=== PATIENT | male | born 1960 | race Caucasian/White ===

== ENCOUNTER 2022-02-07 02:27 | Outpatient (CLI) | payer OTHER, SELFPAY ==
--- NOTE | 2022-02-07 08:00 | ETT_ITS ---
APPROVED REPORT Exam: Exercise Treadmill Patient Location: Out-Patient Room/Bed: Stress Nurse: Rosanne Rueda RN Ordering Provider:CARL TOBAR, Contact Number: [phone] BMI: 33.44 Baseline Rhythm: Sinus Rhythm Indications: Arm pain w/ exertion, Minor SOB Medical History Medical History: HTN, HLD Cardiac Medications: Atorvastatin, Lisinopril, Aspirin Allergies: Codeine Cardiac Risk Factors: +family history, HTN, HLD Previous Cardiac Procedures: None Pretest Chest Pain Characteristics: None Exercise History: Indeterminate, Biking Physical Disabilities: None Lung Sounds: Lungs clear to air Heart Sounds: Regular Stress Test Details Test: Exercise stress testing was performed using a Tao protocol. Rest Stress HR Resting HR Supine: 69 bpm Max Heart Rate (APMHR): 158 bpm Resting HR Standin bpm Target HR (85% APMHR): 134 bpm Max HR Achieved: 156 bpm % of APMHR: 98 Recovery HR: 82 bpm HR response to stress: Normal HR response to stress BP Resting BP Supine: 132/78 mmHg Resting BP Standin/80 mmHg Max BP: 172/78 mmHg Recovery BP: 132/80 mmHg BP response to stress: Normal blood pressure response to stress. ECG Resting ECG: Sinus Rhythm Ectopy: None Stress ECG: Sinus Tachycardia ST Change: Upsloping ST depression Lead(s): II, III, aVF, V4, V5 Stage: [address] Deviation: 0.5-1 mm Arrhythmia: None Recovery ECG: Sinus Rhythm Recovery ST Change: No significant ST segment changes noted Recovery Arrhythmia: 1 PVC Comment: ST depressions resolved w/in 1 minute of recovery Clinical Reason for Termination: ST changes, , Target HR Achieved Stress Symptoms: Slight tingling in left arm Exercise duration: 8 min36 sec Highest Stage Reached: 3 Exercise capacity: 10.16 METs Angina Score: None Nicholson Treadmill Score: 6.5 Rate Pressure Product: [id number] Stress ECG Conclusion 1. The resting electrocardiogram was within normal limits 2. Patient exercised on the Tao protocol and completed a workload of 10.16 METS 3. Normal heart rate and blood pressure response to exercise. The patient achieved 98% of predicted heart rate for age 4. At peak exercise there was no electrocardiographic evidence of myocardial ischemia. In recovery t here were minor nondiagnostic ST-T abnormalities 5. There were no significant dysrhythmias Nichloson Treadmill Score is 6.5 which is Low risk. Stress Test Summary STAGE Time (mins) Speed (mph) Grade (%) HR BP SpO2 SYMPTOMS METS Supine 69 132/78 Standing 73 124/80 1 3 1.7 10 122 162/80 4.5 2 6 2.5 12 138 168/78 Arms feel slightly heavy 7 3 9 3.4 14 156 10 1 min recovery 130 172/78 Left arm tingling 3 min recovery 104 162/84 Arms return to normal 6 min recovery 97 132/80 9 min recovery 82
== END 2022-02-07 02:47 ==
PROVIDERS: Visit Provider Physician Assistant Medical
DX: R06.02 Shortness of breath (principal); M79.602 Pain in left arm; I10 Essential (primary) hypertension; E78.5 Hyperlipidemia, unspecified
CPT/HCPCS: 93017

== ENCOUNTER 2023-04-03 12:39 | Outpatient (CLI) | payer OTHER, SELFPAY ==
[2023-04-03 09:12] LABS: ALT 28 U/L (16-63); AST 17 U/L (15-37); Albumin 3.8 g/dL (3.4-5.0); Alkaline Phosphatase 62 U/L (46-116); Anion Gap 7.7 mmol/L (3-11); BUN 17 mg/dL (7-18); Bilirubin, Total 0.6 mg/dL (0.2-1.0); CO2 28.3 mmol/L (21.0-32.0); CREATININE 1.1 mg/dL (0.70-1.30); Calculated LDL 109 mg/dL (<100); Chloride 103 mmol/L (98-107); Cholesterol 181 mg/dL (<200); Estimated GFR 75.43 (mL/min/1.73m2); Glucose 108 mg/dL (74-106); HDL Cholesterol 44 mg/dL (40-60); Potassium 4.1 mmol/L (3.5-5.1); Sodium 139 mmol/L (136-145); Total Protein 7.7 g/dL (6.4-8.2); Triglyceride 143 mg/dL (<150)
[2023-04-03 20:39] LABS: Hepatitis C Ab w Rflx HCV PCR Negative (Negative)
[2023-04-03 20:40] LABS: HIV-1/2 Ag & Ab Screen Negative (Negative)
== END 2023-04-03 12:40 | disposition home or self-care (01) ==
LOC: LBO 12:40
PROVIDERS: PCP Nurse Practitioner Family; Visit Provider Nurse Practitioner Family
DX: E78.5 Hyperlipidemia, unspecified (principal); Z11.59 Encounter for screening for other viral diseases; Z12.5 Encounter for screening for malignant neoplasm of prostate; Z11.4 Encounter for screening for human immunodeficiency virus [HIV]
CPT/HCPCS: 36415; 80053; 80061; 84153; 86803; 87389

== ENCOUNTER 2024-07-18 22:10 | Outpatient (REF) | payer OTHER, SELFPAY ==
[2024-07-18 22:05] LABS: ALT 32 U/L (16-63); AST 17 U/L (15-37); Albumin 4.5 g/dL (3.4-5.0); Alkaline Phosphatase 72 U/L (46-116); Anion Gap 8.9 mmol/L (3-11); BUN 16 mg/dL (7-18); Bilirubin, Total 0.6 mg/dL (0.2-1.0); CO2 27.1 mmol/L (21.0-32.0); Calcium 9.1 mg/dL (8.5-10.1); Calculated LDL 127 mg/dL (<100); Chloride 104 mmol/L (98-107); Cholesterol 216 mg/dL (<200); Estimated GFR 84.05 (mL/min/1.73m2); Glucose 80 mg/dL (74-106); HDL Cholesterol 51 mg/dL (>or=40); Potassium 4.3 mmol/L (3.5-5.1); Sodium 140 mmol/L (136-145); Triglyceride 194 mg/dL (<150)
[2024-07-21 12:23] LABS: HBs Antibody, Quant <3.1 mIU/mL (See Note); Hep B Surface Ab Negative (See Note); Hepatitis B Core Antibody Negative (Negative); Hepatitis B Surface Antigen Negative (Negative)
== END 2024-07-18 22:11 | disposition home or self-care (01) ==
LOC: LBN 22:10
PROVIDERS: PCP Nurse Practitioner Family; Visit Provider Nurse Practitioner Family
DX: E78.5 Hyperlipidemia, unspecified (principal); Z12.5 Encounter for screening for malignant neoplasm of prostate; Z11.59 Encounter for screening for other viral diseases
CPT/HCPCS: 80053; 80061; 84153; 86704; 86706; 87340

== ENCOUNTER 2025-01-27 01:37 | Outpatient (CLI) | payer OTHER, SELFPAY ==
[2025-01-27 16:13] LABS: Hemoglobin A1C 5.4 % (<5.7)
[2025-01-27 16:22] LABS: Anion Gap 10.7 mmol/L (3-11); BUN 16 mg/dL (7-18); CO2 28.3 mmol/L (21.0-32.0); Calcium 9.2 mg/dL (8.5-10.1); Chloride 102 mmol/L (98-107); Estimated GFR 74.50 (mL/min/1.73m2); Glucose 123 mg/dL (74-106); Potassium 3.4 mmol/L (3.5-5.1); Sodium 141 mmol/L (136-145); TSH (W/Ref FT4) 0.98 uIU/mL (0.36-3.74)
== END 2025-01-27 01:38 | disposition home or self-care (01) ==
LOC: LOS 01:37
PROVIDERS: PCP Nurse Practitioner Family; Visit Provider Nurse Practitioner Family
DX: R63.5 Abnormal weight gain (principal); R73.9 Hyperglycemia, unspecified; I10 Essential (primary) hypertension
CPT/HCPCS: 36415; 80048; 83036; 84443

== ENCOUNTER 2025-03-18 16:06 | Outpatient (CLI) | payer OTHER, SELFPAY ==
[2025-03-18 17:12] LABS: ALT 19 U/L (10-49); AST 17 U/L (<34); Albumin 4.7 g/dL (3.2-5.0); Alkaline Phosphatase 81 U/L (46-116); Anion Gap 8.4 mmol/L (3-11); BUN 11 mg/dL (9-23); Bilirubin, Total 0.50 mg/dL (0.2-1.2); CO2 27.6 mmol/L (20.0-31.0); Calcium 8.7 mg/dL (8.3-10.6); Chloride 106 mmol/L (98-107); Glucose 85 mg/dL (74-106); Potassium 3.7 mmol/L (3.5-5.1); Sodium 142 mmol/L (136-145); Total Protein 7.3 g/dL (5.7-8.2)
[2025-03-18 20:06] LABS: Abs Immature Grans 0.03 10^3/uL (0.0-0.06); HCT 38.2 % (40.0-50.0); HGB 12.4 g/dL (13.5-17.5); Immature Grans % 0.3 %; MCH 30.0 pg (27.0-33.0); MCHC 32.5 % (32.0-36.0); MCV 93 fL (80-95); MPV 11.0 fL (8.0-11.0); Platelet Count 280 10^3/uL (130-400); RBC 4.13 10^6/uL (4.36-5.78); RDW 13.2 % (11.8-14.1); RDW-SD 44.8 fL; WBC 9.27 10^3/uL (4.4-10.8)
[2025-03-18 21:07] LABS: EPI 027-NAP1-B1 PRESUMPTIVE NEGATIVE
[2025-03-20 08:31] LABS: Lab Add On Test DONE
[2025-03-20 08:51] LABS: Vitamin B12 241 pg/mL (211-911)
[2025-03-20 09:40] LABS: Lab Add On Test DONE
[2025-03-20 17:34] LABS: Folate 3.8 ng/mL (See Note)
[2025-03-20 20:21] LABS: Campylobacter PCR Negative (Negative); Shiga Toxin PCR Negative (Negative); Shigella/Enteroinvasive Ecoli Negative (Negative)
== END 2025-03-18 16:07 | disposition home or self-care (01) ==
LOC: LBO 16:07
PROVIDERS: PCP Nurse Practitioner Family; Visit Provider Nurse Practitioner Family
DX: R19.7 Diarrhea, unspecified (principal); D64.9 Anemia, unspecified; T46.5X5A Adverse effect of other antihypertensive drugs, initial encounter
CPT/HCPCS: 36415; 80053; 82784; 83516; 87015; 87269; 87272; 87505; 82607; 82746; 83993; 85025